=== PATIENT | male | born 1970 | race Two or more races ===

== ENCOUNTER 2023-03-26 11:55 | Outpatient (CLI) | payer BC | END 2023-03-26 12:14 | disposition home or self-care (01) | LOC: RAD 11:55 | DX: M99.01 Segmental and somatic dysfunction of cervical region (principal); M99.02 Segmental and somatic dysfunction of thoracic region; M99.03 Segmental and somatic dysfunction of lumbar region; M99.04 Segmental and somatic dysfunction of sacral region; M99.05 Segmental and somatic dysfunction of pelvic region ==

== ENCOUNTER 2023-04-07 09:56 | Outpatient (CLI) | payer BC | END 2023-04-07 10:05 | disposition home or self-care (01) | LOC: RAD 09:56 | PROVIDERS: ATTEND Obstetrics & Gynecology Obstetrics | DX: M54.51 Vertebrogenic low back pain (principal); M54.6 Pain in thoracic spine; M99.08 Segmental and somatic dysfunction of rib cage; R07.81 Pleurodynia ==

== ENCOUNTER 2023-04-21 09:25 | Outpatient (CLI) | payer BC ==
[2023-04-21 10:26] LABS: HEMOGLOBIN 15.9 g/dL (13-16.00); MEAN CELL VOLUME 84.9 fL (80.0-100.00); MEAN CORPUSCULAR HEMOGLOBIN 29.3 pg (27.00-32.0); MEAN CORPUSCULAR HGB CONC 34.5 g/dl (32.0-36.0); PLATELET COUNT 276 K/uL (150-450); RED BLOOD COUNT 5.42 M/uL (4.00-6.00); RED CELL DISTRIBUTION WIDTH 13.7 % (11.5-14.5)
[2023-04-21 10:44] LABS: URINE APPEARANCE Clear; URINE BILIRRUBIN Negative (NEGATIVE); URINE BLOOD Negative; URINE COLOR Yellow; URINE GLUCOSE Negative (NEGATIVE); URINE LEUKOCYTE Negative; URINE NITRATE Negative; URINE PROTEIN Negative (NEGATIVE); URINE UROBILINOGEN 0.2 E.U./dl
[2023-04-21 10:55] LABS: URINE EPITHELIAL CELLS 0.3 uL (0.0-38.8); URINE RBC 0.4 uL (0.0-20.8); URINE WBC 0.1 uL (0.0-23.2)
[2023-04-21 11:15] LABS: ALBUMIN 4.1 gm/dL (3.4-5.0); BILIRUBIN TOTAL 1.06 mg/dL (0.3-1.2); CHOL HDL RATIO 5.2 (0-5.0); CREATININE SERUM 0.8 mg/dL (0.70-1.30); GFR 101.12; GLOBULINA 3.3 G/DL (2.4-3.5); POTASSIUM 3.95 mEq/L (3.5-5.1); PROSTATIC SPECIFIC ANTIGEN 0.479 NG/ML (0.010-4.00); TOTAL PROTEIN 7.4 gm/dL (6.4-8.2); TSH 1.36 uIU/mL (0.358-3.74)
== END 2023-04-21 09:26 | disposition home or self-care (01) ==
LOC: LAB 09:25
DX: D50.0 Iron deficiency anemia secondary to blood loss (chronic) (principal); Z12.11 Encounter for screening for malignant neoplasm of colon; I10 Essential (primary) hypertension; E78.2 Mixed hyperlipidemia; E11.8 Type 2 diabetes mellitus with unspecified complications; N39.0 Urinary tract infection, site not specified; E03.8 Other specified hypothyroidism; N40.0 Benign prostatic hyperplasia without lower urinary tract symptoms; N18.30 Chronic kidney disease, stage 3 unspecified; C80.1 Malignant (primary) neoplasm, unspecified

== ENCOUNTER 2023-04-22 10:15 | Outpatient (CLI) | payer BC | END 2023-04-22 10:22 | disposition home or self-care (01) | LOC: TOM 10:15 | DX: M54.51 Vertebrogenic low back pain (principal) ==

== ENCOUNTER 2023-10-15 09:41 | Outpatient (CLI) | payer BC ==
[2023-10-15 11:01] LABS: PH,URINE 5.5 (5.0-8.0); URINE APPEARANCE Clear; URINE BILIRRUBIN Negative (NEGATIVE); URINE BLOOD Negative; URINE COLOR Yellow; URINE GLUCOSE Negative (NEGATIVE); URINE LEUKOCYTE Negative; URINE NITRATE Negative; URINE PROTEIN Negative (NEGATIVE); URINE UROBILINOGEN 0.2 E.U./dl
[2023-10-15 11:04] LABS: URINE RBC 3.6 uL (0.0-20.8)
[2023-10-15 11:07] LABS: URINE BACTERIA 3.7 uL (0.0-1933); URINE EPITHELIAL CELLS 1.3 uL (0.0-38.8); URINE WBC 1.6 uL (0.0-23.2)
[2023-10-15 11:12] LABS: HEMATOCRIT 45.8 % (39.0-48.0); HEMOGLOBIN 15.8 g/dL (13-16.00); MEAN CELL VOLUME 83.8 fL (80.0-100.00); MEAN CORPUSCULAR HEMOGLOBIN 28.8 pg (27.00-32.0); MEAN CORPUSCULAR HGB CONC 34.4 g/dl (32.0-36.0); PLATELET COUNT 270 K/uL (150-450); RED BLOOD COUNT 5.47 M/uL (4.00-6.00); RED CELL DISTRIBUTION WIDTH 13.4 % (11.5-14.5)
[2023-10-15 11:56] LABS: ALBUMIN 4.1 gm/dL (3.4-5.0); BILIRUBIN TOTAL 0.96 mg/dL (0.3-1.2); CALCIUM 9.1 mg/dL (8.5-10.1); CREATININE SERUM 0.77 mg/dL (0.70-1.30); GFR 105.68; GLOBULINA 3.2 G/DL (2.4-3.5); POTASSIUM 4.06 mEq/L (3.5-5.1); TOTAL PROTEIN 7.3 gm/dL (6.4-8.2); TSH 1.08 uIU/mL (0.358-3.74)
== END 2023-10-15 09:47 | disposition home or self-care (01) ==
LOC: LAB 09:41
DX: D50.0 Iron deficiency anemia secondary to blood loss (chronic) (principal); I10 Essential (primary) hypertension; Z00.00 Encounter for general adult medical examination without abnormal findings; E78.2 Mixed hyperlipidemia; E11.8 Type 2 diabetes mellitus with unspecified complications; N39.0 Urinary tract infection, site not specified; E03.8 Other specified hypothyroidism; N40.0 Benign prostatic hyperplasia without lower urinary tract symptoms

== ENCOUNTER 2023-10-15 10:08 | Outpatient (CLI) | payer BC | END 2023-10-15 10:34 | disposition home or self-care (01) | LOC: SONOGRAMA 10:08 | DX: N20.9 Urinary calculus, unspecified (principal) ==